=== PATIENT | female | born 1990 | race Two or more races ===

== ENCOUNTER 2023-09-10 20:04 | Inpatient (IN) | payer OTHER ==
[~2023-09-10] VITALS: Ht 162.6 cm; Wt 63.5 kg
[~2023-09-10 20:04] MED LIST: ALLEGRA ALLERGY60 MG PO; DICY20TA PO; ORTHO-CYCLEN1 TAB; PRILOSEC10 M1 PO; ZANTAC300 MG PO
[2023-09-11 09:30] LABS: HEMATOCRIT 35.3 % (36.0-45.00); HEMOGLOBIN 11.8 g/dL (12.0-15.00); MEAN CELL VOLUME 93.8 fL (80.00-100.00); MEAN CORPUSCULAR HEMOGLOBIN 31.4 pg (27.00-32.0); MEAN CORPUSCULAR HGB CONC 33.5 g/dl (32.0-36.0); PLATELET COUNT 241 K/uL (150-450); RED BLOOD COUNT 3.76 M/uL (4.00-6.00); RED CELL DISTRIBUTION WIDTH 13.4 % (11.5-14.5)
[2023-09-11] MEDS ORDERED: PRENATAL + DHA1 EAC1 PO (09:45)
[2023-09-11 09:52] LABS: INR < 0.93; PROTHROMBIN TIME 9.6 SECONDS (9.0-11.5)
[2023-09-11 09:55] LABS: ALBUMIN 2.7 gm/dL (3.4-5.0); BILIRUBIN TOTAL 0.29 mg/dL (0.3-1.2); CALCIUM 8.6 mg/dL (8.5-10.1); CREATININE SERUM 0.54 mg/dL (0.55-1.02); GFR 128.47; GLOBULINA 3.8 G/DL (2.4-3.5); POTASSIUM 3.99 mEq/L (3.5-5.1); TOTAL PROTEIN 6.5 gm/dL (6.4-8.2)
[2023-09-14] MEDS ORDERED: Procardia Xl 30MG TA PO (07:40)
== END 2023-09-14 09:10 | disposition home or self-care (01) | DRG 833 ==
LOC: OBS/DEL 20:04 → LDR 21:20 → OBS/DEL 21:37 → LDR 09-11 08:14 → OBS/DEL 09-11 08:14 → OB/GYN 09-12 09:23
PROVIDERS: Obstetrics & Gynecology; ADMIT Obstetrics & Gynecology Gynecology; ATTEND Obstetrics & Gynecology Gynecology
PROC: BY4CZZZ Ultrasonography of Second Trimester, Single Fetus (ICD-10-PCS; principal; 2023-09-10)
PROC: 4A1HXCZ Monitoring of Products of Conception, Cardiac Rate, External Approach (ICD-10-PCS; 2023-09-11)
DX: O44.02 Complete placenta previa NOS or without hemorrhage, second trimester (principal); Z3A.22 22 weeks gestation of pregnancy; Z20.822 Contact with and (suspected) exposure to COVID-19

== ENCOUNTER 2023-10-05 18:29 | Inpatient (IN) | payer OTHER ==
[~2023-10-05] VITALS: Ht 162.6 cm; Wt 63.5 kg
[~2023-10-05 18:29] MED LIST changes: +PRENATAL + DHA1 EAC1 PO; +Procardia Xl 30MG TA PO
[2023-10-05 19:30] LABS: HEMATOCRIT 34.2 % (36.0-45.00); HEMOGLOBIN 11.9 g/dL (12.0-15.00); MEAN CELL VOLUME 90.4 fL (80.00-100.00); MEAN CORPUSCULAR HEMOGLOBIN 31.3 pg (27.00-32.0); MEAN CORPUSCULAR HGB CONC 34.7 g/dl (32.0-36.0); PLATELET COUNT 244 K/uL (150-450); RED BLOOD COUNT 3.78 M/uL (4.00-6.00); RED CELL DISTRIBUTION WIDTH 12.9 % (11.5-14.5)
[2023-10-05 20:01] LABS: INR < 0.93; PARTIAL THROMBOPLASTIN TIME 27.2 SECONDS (22.0-34.0); PROTHROMBIN TIME 9.6 SECONDS (9.0-11.5)
[2023-10-05 20:06] LABS: BILIRUBIN TOTAL 0.2 mg/dL (0.3-1.2); CREATININE SERUM 0.47 mg/dL (0.55-1.02); GFR 150.79; POTASSIUM 4.16 mEq/L (3.5-5.1)
== END 2023-10-08 09:40 | disposition home or self-care (01) | DRG 833 ==
LOC: LDR 18:29 → OB/GYN 10-06 10:12
PROVIDERS: ADMIT Obstetrics & Gynecology Maternal & Fetal Medicine; ATTEND Obstetrics & Gynecology Maternal & Fetal Medicine
PROC: 4A1HXCZ Monitoring of Products of Conception, Cardiac Rate, External Approach (ICD-10-PCS; principal; 2023-10-05)
PROC: BU4CZZZ Ultrasonography of Uterus and Ovaries (ICD-10-PCS; 2023-10-05)
PROC: BY4CZZZ Ultrasonography of Second Trimester, Single Fetus (ICD-10-PCS; 2023-10-05)
DX: O44.12 Complete placenta previa with hemorrhage, second trimester (principal); Z3A.25 25 weeks gestation of pregnancy; Z20.822 Contact with and (suspected) exposure to COVID-19

== ENCOUNTER 2023-10-10 22:30 | Inpatient (IN) | payer OTHER ==
[~2023-10-10] VITALS: Ht 162.6 cm; Wt 63.5 kg
[2023-10-10 23:13] LABS: HEMATOCRIT 32.2 % (36.0-45.00); HEMOGLOBIN 11.1 g/dL (12.0-15.00); MEAN CELL VOLUME 90.7 fL (80.00-100.00); MEAN CORPUSCULAR HEMOGLOBIN 31.1 pg (27.00-32.0); MEAN CORPUSCULAR HGB CONC 34.3 g/dl (32.0-36.0); PLATELET COUNT 230 K/uL (150-450); RED BLOOD COUNT 3.55 M/uL (4.00-6.00); RED CELL DISTRIBUTION WIDTH 12.7 % (11.5-14.5)
[2023-10-10 23:36] LABS: INR < 0.93; PARTIAL THROMBOPLASTIN TIME 26.9 SECONDS (22.0-34.0); PROTHROMBIN TIME 9.8 SECONDS (9.0-11.5)
[2023-10-10 23:41] LABS: ALBUMIN 2.6 gm/dL (3.4-5.0); BILIRUBIN TOTAL 0.2 mg/dL (0.3-1.2); CALCIUM 8.4 mg/dL (8.5-10.1); CREATININE SERUM 0.53 mg/dL (0.55-1.02); GFR 131.27; GLOBULINA 3.6 G/DL (2.4-3.5); POTASSIUM 3.73 mEq/L (3.5-5.1); TOTAL PROTEIN 6.2 gm/dL (6.4-8.2)
[2023-10-12 17:56] LABS: FERRITIN 15.6 NG/ML (8-252)
[2023-10-12 17:57] LABS: C-REACTIVE PROTEIN 5.5 MG/DL (0.00-0.29)
== END 2023-10-15 12:04 | disposition home or self-care (01) | DRG 831 ==
LOC: LDR 22:30 → OB/GYN 10-13 18:40
PROVIDERS: Internal Medicine Infectious Disease; ADMIT Obstetrics & Gynecology Maternal & Fetal Medicine; ATTEND Obstetrics & Gynecology Maternal & Fetal Medicine
PROC: 4A1HXCZ Monitoring of Products of Conception, Cardiac Rate, External Approach (ICD-10-PCS; principal; 2023-10-10)
PROC: 8E0ZXY6 Isolation (ICD-10-PCS; 2023-10-12)
DX: O98.512 Other viral diseases complicating pregnancy, second trimester (principal); U07.1 COVID-19; O44.02 Complete placenta previa NOS or without hemorrhage, second trimester; Z3A.26 26 weeks gestation of pregnancy; Z20.822 Contact with and (suspected) exposure to COVID-19

== ENCOUNTER 2023-12-13 20:46 | Outpatient (CLI) | payer OTHER ==
[2023-12-13] MEDS ORDERED: RINGERS SOLUTION,LACTATED 1,000 ML IV SCH (21:00)
[2023-12-13] MEDS ORDERED: NIFEDIPINE 30 MG TAB.SA.OSM PO SCH (21:00)
== END 2023-12-14 09:46 | disposition home or self-care (01) ==
LOC: OBS/DEL 20:46
PROVIDERS: ATTEND Obstetrics & Gynecology
DX: O26.853 Spotting complicating pregnancy, third trimester (principal); Z3A.35 35 weeks gestation of pregnancy

== ENCOUNTER 2023-12-29 12:19 | Inpatient (IN) | payer OTHER ==
[~2023-12-29] VITALS: Ht 160 cm; Wt 2.7 kg
[2023-12-29 12:56] LABS: HEMATOCRIT 36.5 % (36.0-45.00); HEMOGLOBIN 12.3 g/dL (12.0-15.00); MEAN CELL VOLUME 90.1 fL (80.00-100.00); MEAN CORPUSCULAR HEMOGLOBIN 30.4 pg (27.00-32.0); MEAN CORPUSCULAR HGB CONC 33.8 g/dl (32.0-36.0); PLATELET COUNT 289 K/uL (150-450); RED BLOOD COUNT 4.05 M/uL (4.00-6.00)
[2023-12-29 13:27] LABS: ALBUMIN 2.7 gm/dL (3.4-5.0); BILIRUBIN TOTAL 0.44 mg/dL (0.3-1.2); CALCIUM 8.7 mg/dL (8.5-10.1); CREATININE SERUM 0.48 mg/dL (0.55-1.02); GFR 147.18; GLOBULINA 3.9 G/DL (2.4-3.5); INR < 0.93; POTASSIUM 4.09 mEq/L (3.5-5.1); PROTHROMBIN TIME 9.6 SECONDS (9.0-11.5); TOTAL PROTEIN 6.6 gm/dL (6.4-8.2)
[2023-12-29 13:28] LABS: PARTIAL THROMBOPLASTIN TIME 28.2 SECONDS (22.0-34.0)
[2023-12-29] MEDS ORDERED: RINGERS SOLUTION,LACTATED 1,000 ML IV SCH (15:30)
[2023-12-30] MEDS ORDERED: CEFAZOLIN SODIUM 1,000 MG VIAL IV ONE (08:15)
[2023-12-30] MEDS ORDERED: METOCLOPRAMIDE HCL 10 MG in DEXTROSE 5 % IN WATER 50 ML IV ONE (08:15)
[2023-12-30] MEDS ORDERED: CITRIC ACID/SODIUM CITRATE 30 ML BLIST.PACK PO ONE (08:15)
[2023-12-30] MEDS ORDERED: METOCLOPRAMIDE HCL 5 MG/ML VIAL ONE (08:50)
[2023-12-30] MEDS ORDERED: OXYTOCIN 10 UNITS/ML VIAL ONE ×2 (12:51→13:26)
[2023-12-30] MEDS ORDERED: ERYTHROMYCIN BASE 3.5 GM OINT...G. OP ONE ×2 (12:52→13:28)
[2023-12-30] MEDS ORDERED: CEFAZOLIN SODIUM 1,000 MG VIAL ONE (13:28)
[2023-12-30] MEDS ORDERED: RINGERS SOLUTION,LACTATED 1,000 ML IV SCH (14:00)
[2023-12-30] MEDS ORDERED: OXYTOCIN 1,000 ML IV SCH (14:00)
[2023-12-30] MEDS ORDERED: ONDANSETRON HCL 2 MG/ML VIAL IV PRN (14:00)
[2023-12-30] MEDS ORDERED: MORPHINE SULFATE 4 MG/ML CARTRIDGE IV PRN (14:00)
[2023-12-30] MEDS ORDERED: ONDANSETRON HCL 2 MG/ML VIAL ONE (14:10)
[2023-12-30] MEDS ORDERED: OXYTOCIN 10 UNITS/ML VIAL IV ONE (16:00)
[2023-12-30] MEDS ORDERED: ERYTHROMYCIN BASE 1 GM TUBE OP ONE (16:00)
[2023-12-30] MEDS ORDERED: KETOROLAC TROMETHAMINE 30 MG VIAL ONE (16:33)
[2023-12-30] MEDS ORDERED: GABAPENTIN 300 MG CAPSULE PO SCH (17:00)
[2023-12-30] MEDS ORDERED: SIMETHICONE 125 MG CAPSULE PO SCH (17:00)
[2023-12-30] MEDS ORDERED: KETOROLAC TROMETHAMINE 30 MG VIAL IV SCH (18:00)
[2023-12-31] MEDS ORDERED: ACETAMINOPHEN 500 MG GEL..CAP PO SCH (05:00)
[2023-12-31] MEDS ORDERED: KETOROLAC TROMETHAMINE 10 MG TABLET PO PRN (06:00)
[2023-12-31 06:29] LABS: HEMATOCRIT 28.3 % (36.0-45.00); MEAN CELL VOLUME 90.1 fL (80.00-100.00); MEAN CORPUSCULAR HGB CONC 33.9 g/dl (32.0-36.0); PLATELET COUNT 231 K/uL (150-450); RED BLOOD COUNT 3.14 M/uL (4.00-6.00)
[2023-12-31 06:31] LABS: MEAN CORPUSCULAR HEMOGLOBIN 30.5 pg (27.00-32.0)
[2023-12-31 06:32] LABS: HEMOGLOBIN 9.6 g/dL (12.0-15.00)
[2023-12-31] MEDS ORDERED: DOCUSATE CALCIUM 240 MG CAPSULE PO SCH (09:00)
[2024-01-01] MEDS ORDERED: KETO10TA2 PO (07:37)
[2024-01-01] MEDS ORDERED: PERCOCET 5-3251 EACH PO (07:38)
== END 2024-01-01 14:59 | disposition home or self-care (01) | DRG 787 ==
LOC: LDR 12:19 → OB/GYN 12:19
PROVIDERS: Obstetrics & Gynecology; ADMIT Obstetrics & Gynecology Maternal & Fetal Medicine; ATTEND Obstetrics & Gynecology Maternal & Fetal Medicine
PROC: 4A1HXCZ Monitoring of Products of Conception, Cardiac Rate, External Approach (ICD-10-PCS; 2023-12-29)
PROC: 10D00Z1 Extraction of Products of Conception, Low, Open Approach (ICD-10-PCS; principal; 2023-12-30 17:00)
DX: O32.2XX0 Maternal care for transverse and oblique lie, not applicable or unspecified (principal); O72.2 Delayed and secondary postpartum hemorrhage; Z3A.37 37 weeks gestation of pregnancy; Z37.0 Single live birth; Z20.822 Contact with and (suspected) exposure to COVID-19